=== PATIENT | male | born 1965 | race Caucasian/White ===

== ENCOUNTER 2025-03-20 18:02 | Emergency (ER) | payer BC, SELFPAY ==
[2025-03-20] VITALS (10 sets, daily range): BP systolic 122–145; BP diastolic 64–90; BMI 25.4
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
[2025-03-20] MEDS: TORADOL 15 MG IM (18:35)
[2025-03-20] MEDS: MORPHINE SULFATE 4 MG IV (21:00)
[2025-03-21] VITALS: BP 133/84
[2025-03-21] MEDS: TORADOL 15 MG IV (00:33)
== END 2025-03-21 01:02 | disposition home or self-care (01) ==
LOC: EMR 18:02
PROVIDERS: EMERGENCY PHYSICIAN Emergency Medicine
DX: S22.42XA Multiple fractures of ribs, left side, initial encounter for closed fracture (principal); S42.032A Displaced fracture of lateral end of left clavicle, initial encounter for closed fracture; V29.888A Rider (driver) (passenger) of other motorcycle injured in other specified transport accidents, initial encounter; Z87.891 Personal history of nicotine dependence
CPT/HCPCS: 96374; 96375; 96372; 99284; 70450; 71111; 71250; 72110; 72125; 73030